=== PATIENT | male | born 1990 | race Caucasian/White ===

== ENCOUNTER 2020-11-22 08:08 | Day surgery (SDC) | payer OTHER ==
[~2020-11-22] VITALS: Ht 185.4 cm; Wt 123.4 kg
[2020-11-22] MEDS ORDERED: MOBIC15 MG (08:56)
[2020-11-22] MEDS ORDERED: CLARITIN 1010 MG/TAB PO (08:57)
[2020-11-22] MEDS ORDERED: PROBIOTIC BLEN1 EACH PO (08:58)
[2020-11-22] MEDS ORDERED: D3-5050000 IU PO (08:59)
[2020-11-22] MEDS ORDERED: LYRICA 75MG CAP75 MG PO (09:00)
[2020-11-22] MEDS ORDERED: METAMUCIL3.4 GM/DOS PO (09:01)
[2020-11-22] MEDS ORDERED: EPA FISH OIL1 SGL PO (09:01)
[2020-11-22 09:30] VITALS: BP 127/91; PULSE 80; TEMP 98.7
[2020-11-22] MEDS ORDERED: PROTONIX 40MG T40 MG PO (10:05)
[2020-11-22 10:10] VITALS: BP 122/90; PULSE 69
--- NOTE | 2020-11-22 10:10 | NUR ---
Pt to GI [facility] 5 via cart from [employer]. Pt awake and alert. Pt ambulates to recliner with stand by assistance. in room. Warm blanket given. into speak with pt and . Water, coffee, and snack given. Will continue to monitor. Call light within reach.
[2020-11-22 10:25] VITALS: BP 126/81; PULSE 79
--- NOTE | 2020-11-22 10:25 | NUR ---
Pt continues to rest. Tolerating po food and fluids without difficulties. Call light within reach.
[2020-11-22 10:40] VITALS: BP 120/81; PULSE 70
--- NOTE | 2020-11-22 10:40 | NUR ---
Pt continues to rest. Discharge instructions reviewed. Pt voices understanding. IV site discontinued with all parts intact. Pt up to dress. Call light within reach.
--- NOTE | 2020-11-22 10:55 | NUR ---
Pt escorted to private car via wheel chair. Pt accompanied home by his .
== END 2020-11-22 10:55 | disposition home or self-care (01) ==
LOC: SDCO 08:08
DX: K21.00 Gastro-esophageal reflux disease with esophagitis, without bleeding (principal); K29.30 Chronic superficial gastritis without bleeding; R19.7 Diarrhea, unspecified; K59.00 Constipation, unspecified; Z87.891 Personal history of nicotine dependence; Z79.899 Other long term (current) drug therapy; Z88.1 Allergy status to other antibiotic agents; Z88.8 Allergy status to other drugs, medicaments and biological substances; Z20.822 Contact with and (suspected) exposure to COVID-19
CPT/HCPCS: J2704

== ENCOUNTER → 2021-04-24 | Outpatient (RCR) | payer OTHER ==
[~2021-04-24] MED LIST: CLARITIN 1010 MG/TAB PO; D3-5050000 IU PO; EPA FISH OIL1 SGL PO; LYRICA 75MG CAP75 MG PO; METAMUCIL3.4 GM/DOS PO; MOBIC15 MG; PROBIOTIC BLEN1 EACH PO; PROTONIX 40MG T40 MG PO
== END | disposition home or self-care (01) ==
LOC: WSPT → WSC 01-24 12:58 → WSPT 03-31 11:00
DX: M77.32 Calcaneal spur, left foot (principal); M77.31 Calcaneal spur, right foot

== ENCOUNTER 2021-07-28 10:30 | Outpatient (RCR) | payer OTHER | END 2021-08-06 | disposition home or self-care (01) | LOC: WSPT | DX: M77.32 Calcaneal spur, left foot (principal); M77.31 Calcaneal spur, right foot ==

== ENCOUNTER 2021-09-21 11:00 | Outpatient (RCR) | payer OTHER | END 2021-09-22 | disposition still patient (30) | LOC: WSPT | DX: M77.32 Calcaneal spur, left foot (principal); M77.31 Calcaneal spur, right foot ==

== ENCOUNTER 2021-10-13 10:30 | Outpatient (RCR) | payer OTHER | END 2021-10-23 | disposition home or self-care (01) | LOC: WSPT | DX: M77.31 Calcaneal spur, right foot (principal); M77.32 Calcaneal spur, left foot ==

== ENCOUNTER 2021-11-17 15:00 | Outpatient (RCR) | payer OTHER | END 2021-11-20 | disposition home or self-care (01) | LOC: WSPT | DX: M77.32 Calcaneal spur, left foot (principal); M77.31 Calcaneal spur, right foot ==

== ENCOUNTER 2021-12-08 15:00 | Outpatient (RCR) | payer OTHER | END 2021-12-08 18:00 | disposition home or self-care (01) | LOC: WSPT 15:00 | DX: M77.32 Calcaneal spur, left foot (principal); M77.31 Calcaneal spur, right foot ==